=== PATIENT | female | born 1990 | race Caucasian/White ===

== ENCOUNTER 2021-01-27 08:50 | Inpatient (IN) ==
[2021-01-27] MEDS ORDERED: OXYTOCIN 30 UNITS/500 ML BAG IV PRN ×3 (09:12→19:21)
--- NOTE | 2021-01-27 09:20 | History & Physical Report ---
Date of Service January 27, 2021 Assessment & Plan (1) Encounter for induction of labor: Plan: Admit, labs, iv, pitocin, plan arom. fhts categ 1. Admission and Anticipated Discharge Date Admission Date: January 27, 2021 History of Present Illness Chief Complaint: postdates induction Primary Care Provider: Dimitrios Cabrera, TIMOTHY, GUI 30yo at 40+wks marya presents to L&D with cc of planned induction for postdates. She had some ctx yesterday but stopped. No rom, no vb. +FM. PNC c/b 1. postdates 2. hypothyroid PNL Rh pos, RI, GBS neg OBH: x 2 GYNH: nl paps, no stds Allergies Allergy/AdvReac Type Severity Reaction Status Date / Time No Known Allergies Allergy Verified 01/26/21 14:55 Home Medications Medication Instructions Recorded Confirmed Type prenat.vits,zohreh,[id number] 1 tab PO DAILY 12/08/19 01/26/21 History levothyroxine 137 mcg tablet 137 mcg PO DAILY #90 tab 01/06/21 01/26/21 Rx ferrous sulfate 325 mg (65 mg 325 mg PO DAILY 01/27/21 01/27/21 History iron) tablet (Iron (ferrous sulfate)) Patient History Medical History (Updated 01/27/21 @ 09:32 by Francine Hall MD, FACOG) Hyperthyroidism Hypothyroidism Varicella vaccination Surgical History [facility] teeth extracted Family History (Updated 05/24/20 @ 11:13 by Cee Sin) Mother Hypothyroidism Family/Other Spina bifida Denies family history of Ovarian cancer Prostate cancer Myocardial infarction Breast cancer Colorectal cancer Social History (Updated 05/24/20 @ 11:14 by Cee Sin) Smoking Status: Never smoker Second Hand Exposure: No; Hx Alcohol Use: No Hx Substance Use: No Preferred Language: Polish Communication Ability: Effective Visual Impairment: No Limitations Hearing Ability: Normal Neon Sign Servicer Required: No Beliefs That Will Affect Care: None marital status: marital status details: Ramsey Beverly (32) [phone] Current Living Situation: Family Current Living Situation Comment: lives with spouse, 2 children current occupation: homemaker Feels Safe at Home: Yes Safety Concerns: Feels Safe At This Time Childhood Exposure to Second-Hand Smoke: No Dental Care, Regularly: Yes Physical Activity Frequency: 1-2 Times per Week Seatbelt Use: always Sunscreen Use: Yes Review of Systems as per Subjective / HPI Physical Exam Constitutional: WD/WN, vitals as above Respiratory: normal respiratory effort, lungs clear to auscultation Cardiovascular: Rate/Rhythm: regular rate and regular rhythm Gastrointestinal (Abdomen): soft gravid nt EFW 7-8# Musculoskeletal: no edema Neurologic: grossly normal Psychiatric: A+Ox3, euthymic affect Genitourinary: Manual OB Exam: + cervical dilation (2-3cm), + cervical effacement 70% and + station -2 OB Exam Monitor Tracing: + external FHT monitor used, + external uterine monitor used (occas), + category I and + normal FHT variability Results & Data ([facility]) Vital Signs (Past 12 Hours) Vital Signs Pulse BP 01/27/21 09:05 113 H 105/59 L Coding Level of Care Code None Diagnoses Encounter for induction of labor Z34.90
[2021-01-27] MEDS: LACTATED RINGER'S 1,000 ML IV PRN ×2 (09:51→15:41)
[2021-01-27 10:06] LABS: Hematocrit (blood only) 35.9 % (37-47); Hemoglobin 12.3 g/dL (12.0-16.0); Mean Corpuscular Hemoglobin 31.6 pg (25-34); Mean Corpuscular Hgb Conc 34.3 g/dL (32-36); Mean Corpuscular Volume 92.3 fL (80-100); Mean Platelet Volume 10.3 fL (7.4-10.4); Platelet Count 273 K/uL (130-400); RDW Coefficient of Variation 13.2 % (11.5-14.5); RDW Standard Deviation 44.7 fL (36.4-46.3); Red Blood Count 3.89 M/uL (4.2-5.4); White Blood Count 8.73 K/uL (4.8-10.8)
[2021-01-27] MEDS ORDERED: SODIUM CHLORIDE 0.9% INJ 10 ML VIAL ONE (10:16)
[2021-01-27] MEDS ORDERED: ePHEDrine sulfate 50 MG/ML AMP ONE (10:16)
[2021-01-27] MEDS ORDERED: fentaNYL citrate 100 MCG/2 ML VIAL ONE (10:17)
[2021-01-27] MEDS ORDERED: fentaNYL 2MCG/ML ROPIVACAINE 1.25MG/ML 100 ML BAG EPI ONE (10:17)
[2021-01-27] MEDS ORDERED: BUPIVACAINE 0.25% 30 ML VIAL ONE (10:17)
[2021-01-27] MEDS ORDERED: NALOXONE HCL 1 MG in SODIUM CHLORIDE 0.9% 1000ML 1,000 ML IV PRN (15:44)
[2021-01-27] MEDS ORDERED: ePHEDrine sulfate 50 MG/ML AMP IV PRN (15:44)
[2021-01-27] MEDS ORDERED: NALOXONE HCL 0.4 MG/1 ML VIAL/CARP IV PRN (15:44)
[2021-01-27] MEDS ORDERED: diphenhydrAMINE 50 MG/ML VIAL IV PRN (15:44)
[2021-01-27] MEDS ORDERED: ONDANSETRON INJ 2 MG/ML 2 ML VIAL IV PRN (15:44)
[2021-01-27] MEDS ORDERED: fentaNYL 2MCG/ML ROPIVACAINE 1.25MG/ML 100 ML BAG EPI PRN (15:44)
[2021-01-27] MEDS ORDERED: NALBUPHINE HCL INJ 10 MG/ML AMP IV PRN (15:44)
--- NOTE | 2021-01-27 15:47 | Anesthesiology Consultation ---
Date of Service January 27, 2021 Assessment & Plan ASA ASA2 Proposed Anesthesia Anesthesia Type: Labor Epidural Risk / Benefits Reviewed With: PT / POA / Parent / Guardian, Accepts Plan and Informed Consent Obtained History Height/Weight Height: 5 ft 3 in Weight: 70.307 kg Allergies Allergy/AdvReac Type Severity Reaction Status Date / Time No Known Allergies Allergy Verified 01/26/21 14:55 Medications Home Medications Medication Instructions Recorded Confirmed Last Taken prenat.vits,zohreh,zjg-goqu-rorbn 1 tab PO DAILY 12/08/19 01/27/21 01/27/21 levothyroxine 137 mcg tablet 137 mcg PO DAILY #90 tab 01/06/21 01/27/21 01/27/21 ferrous sulfate 325 mg (65 mg 325 mg PO DAILY 01/27/21 01/27/21 01/26/21 iron) tablet (Iron (ferrous sulfate)) Active Medications Generic Name Dose Route Start Last Admin Trade Name Freq PRN Reason Stop Dose Admin Ephedrine Sulfate 10 mg 01/27/21 15:44 01/27/21 16:28 Ephedrine Sulfate 50 Mg/Ml Amp IV 01/28/21 15:43 10 mg Q5M PRN Administration Hypotension Oxytocin 30 units in 500 mls @ 3 mls/hr 01/27/21 09:12 01/27/21 11:18 Pitocin IV 01/29/21 09:11 0.18 units/hr .Q24H PRN 3 mls/hr Labor Induction/Augmentation Titration Protocol 0.18 UNITS/HR Lactated Ringer's 1,000 mls @ 125 mls/hr 01/27/21 09:12 01/27/21 16:21 Lr IV 01/29/21 09:11 125 mls/hr .Q8H PRN Titration L&D Protocol Protocol Ropivacaine 100 ml 01/27/21 15:44 01/27/21 16:17 Fentanyl 2mcg/Ml Ropivacaine 1.25mg/Ml 100 Ml Bag EPI 01/28/21 15:43 100 ml PRN PRN Administration Pain R/T Labor Protocol Past Medical History Medical History (Updated 01/27/21 @ 09:32 by Francine Hall MD, FACOG) Hyperthyroidism Hypothyroidism Varicella vaccination Exercise / Class Metabolic Activity II 4-5 Yardwork/Stairs/Walk up hill Past Family History Family History (Updated 05/24/20 @ 11:13 by Cee Sin) Mother Hypothyroidism Family/Other Spina bifida Denies family history of Ovarian cancer Prostate cancer Myocardial infarction Breast cancer Colorectal cancer Past Surgical History Surgical History [place] teeth extracted Past Anesthesia History No Hx of Anesthesia Complications and No Family Hx of Anesthesia Complications History of PONV No Hx of PONV and No Hx of Motion Sickness Social History Smoking Status: Never smoker Hx Alcohol Use: No Hx Substance Use: No Review of Systems denies fever/cough/ colds/ chest pain/ SOB/ DAYANA denies DAYANA Physical Exam Vital Signs Last Vital Signs Temp 36.9 C 01/27/21 15:00 Pulse 113 H 01/27/21 09:05 Resp 18 01/27/21 15:00 BP 105/59 L 01/27/21 09:05 ENMT Mouth: no TMJ abnormality and no dentition abnormality Thyromental Distance: > or= 3.5 Finger Breadths Mallampati Class: II Neck neck extension not limited Respiratory normal respiratory effort; no respiratory distress Auscultation: lungs clear to auscultation bilaterally Cardiovascular Rate/Rhythm: regular rate and regular rhythm Neurologic moves all extremities Psychiatric Orientation: alert and oriented x 3 Testing Laboratory Results 01/27/21 09:53
[2021-01-27] MEDS ORDERED: HYDROCORTISONE ACETATE 25 MG SUPP PR PRN (19:21)
[2021-01-27] MEDS ORDERED: ACETAMINOPHEN 325 MG TAB PO PRN (19:21)
[2021-01-27] MEDS ORDERED: BENZOCAINE 20% AER SPR 82.5 GM CAN EXT PRN (19:21)
[2021-01-27] MEDS ORDERED: SUPERCREAM 0.870% 15 GM JAR EXT PRN (19:21)
[2021-01-27] MEDS ORDERED: DIPHTHERIA/TETANUS/PERTUSSIS 0.5 ML SYR/VIAL IM ONE (19:21)
[2021-01-27] MEDS ORDERED: oxyCODONE/ACETAMINOPHEN 5mg/325mg TAB PO PRN (19:21)
[2021-01-27] MEDS: IBUPROFEN 600 MG TAB PO PRN (19:44)
[2021-01-27] MEDS ORDERED: OXYTOCIN 20 UNITS in LACTATED RINGER'S 1,000 ML IV SCH (19:45)
--- NOTE | 2021-01-27 19:55 | Anesthesiology Progress Note ---
Date of Service January 27, 2021 Anesthesia Post Procedure Vital Signs Vital Signs: Temp Pulse Resp BP Pulse Ox 01/27/21 19:46 100 H 103/55 L 01/27/21 19:31 107 H 98/56 L 01/27/21 19:30 107 H 18 98/56 L 01/27/21 19:17 103 H 101/59 L 01/27/21 19:15 37.1 C 107 H 18 98/56 L 01/27/21 19:14 112 H 99 01/27/21 19:09 106 H 98 01/27/21 19:04 128 H 99 01/27/21 19:00 18 01/27/21 18:59 125 H 99 01/27/21 18:56 124 H 74 L 01/27/21 18:54 128 H 99 01/27/21 18:52 127 H 114/59 L 01/27/21 18:49 122 H 82 L 01/27/21 18:44 110 H 97 01/27/21 18:42 119 H 92 01/27/21 18:39 107 H 100 01/27/21 18:36 96 H 104/56 L 01/27/21 18:34 112 H 99 01/27/21 18:30 18 01/27/21 18:29 105 H 98 01/27/21 18:25 97 H 92 01/27/21 18:24 95 H 98 01/27/21 18:21 77 80/42 L 01/27/21 18:19 87 99 01/27/21 18:14 108 H 98 01/27/21 18:09 109 H 98 01/27/21 18:05 107 H 88/52 L 01/27/21 18:04 127 H 99 01/27/21 18:00 18 01/27/21 17:59 109 H 97 01/27/21 17:54 120 H 99 01/27/21 17:50 118 H 110/57 L 01/27/21 17:49 119 H 99 01/27/21 17:45 135 H 87 L 01/27/21 17:44 138 H 99 01/27/21 17:39 123 H 94 01/27/21 17:35 114 H 112/58 L 01/27/21 17:34 120 H 100 01/27/21 17:29 112 H 100 01/27/21 17:24 119 H 100 01/27/21 17:20 112 H 100/58 L 01/27/21 17:19 112 H 100 01/27/21 17:14 111 H 100 01/27/21 17:09 114 H 99 01/27/21 17:06 118 H 101/58 L 01/27/21 17:04 110 H 99 01/27/21 17:00 18 01/27/21 16:59 110 H 100 01/27/21 16:54 109 H 100 01/27/21 16:49 104 H 104/66 100 01/27/21 16:44 104 H 100 01/27/21 16:39 104 H 100 01/27/21 16:35 107 H 108/75 01/27/21 16:34 104 H 100 01/27/21 16:32 90 113/65 01/27/21 16:30 82 18 98/59 L 01/27/21 16:29 75 100 01/27/21 16:28 61 18 74/40 L 01/27/21 16:27 65 80/47 L 01/27/21 16:26 68 18 75/44 L 01/27/21 16:24 78 18 100 01/27/21 16:22 18 01/27/21 16:20 18 01/27/21 16:19 97 H 105/64 100 01/27/21 16:18 18 01/27/21 16:17 106 H 105/61 01/27/21 16:16 18 01/27/21 16:15 97 H 99/58 L 01/27/21 16:14 100 H 18 100 01/27/21 16:13 95 H 94/60 L 01/27/21 16:12 36.9 C 18 01/27/21 16:11 92 H 101/72 01/27/21 16:09 107 H 101/58 L 100 01/27/21 16:07 97 H 102/58 L 01/27/21 16:04 97 H 100 01/27/21 16:00 108 H 107/61 01/27/21 15:59 108 H 100 01/27/21 15:00 36.9 C 18 01/27/21 12:30 18 01/27/21 12:00 18 01/27/21 11:30 18 01/27/21 09:05 36.8 C 113 H 18 105/59 L 01/27/21 09:00 36.6 C 18 Pain Intensity Lower Abdomen: Pain Intensity: 3 Transfer of Care Handoff Completed per policy Notes Mental Status: alert / awake / arousable and participated in evaluation Patient Amnestic to Procedure: Yes Nausea / Vomiting: adequately controlled Pain: adequately controlled Airway Patency, RR, SpO2: stable & adequate BP & HR: stable & adequate Hydration State: stable & adequate Anesthetic Complications: no major complications apparent and Pt Satisfied with anesthetic care
[2021-01-27] MEDS: DOCUSATE SODIUM 100 MG CAP PO SCH (21:51)
[2021-01-28] MEDS: IBUPROFEN 600 MG TAB PO PRN ×5 (00:44→17:35)
[2021-01-28] MEDS ORDERED: LEVOTHYROXINE SODIUM 137 MCG TABLET PO SCH (06:30)
--- NOTE | 2021-01-28 07:09 | Obstetrical Progress Note ---
Date of Service January 28, 2021 Assessment & Plan (1) care and examination: stable, doing well. desires d/c home. . rh pos, ri. instructions reviewed, f/u 6 wks pp Day #:: 1 Subjective Ambulation: ambulating normally Voiding: no voiding problems Diet Tolerance:: regular diet Lochia:: Small Feeding Type:: breast feeding denies complaints or pain issues Constitutional: + as per Subjective / HPI Physical Exam Constitutional WD/WN, vitals as above Respiratory normal respiratory effort, lungs clear to auscultation Cardiovascular Rate/Rhythm: regular rate and regular rhythm Gastrointestinal (Abdomen) Inspection/Auscultation: abdomen normal to inspection Percussion/Palpation: abdomen soft Fundus firm 1-2cm down Musculoskeletal nt calves no edema Neurologic grossly normal Psychiatric A+Ox3, euthymic affect Results & Data ([facility]) Vital Signs (Past 12 Hours) Vital Signs Temp Pulse Pulse Resp BP BP Pulse Ox 01/28/21 03:15 98.4 F 70 16 86/42 L 97 01/27/21 23:10 99.1 F 75 16 95/55 L 97 01/27/21 22:08 97.7 F 87 16 97/61 L 97 01/27/21 21:15 83 20 99/55 L 01/27/21 21:11 83 99/55 L 01/27/21 20:45 93 H 18 102/52 L 01/27/21 20:16 93 H 102/52 L 01/27/21 20:15 88 18 98/57 L 01/27/21 20:01 88 98/57 L 01/27/21 20:00 88 20 98/57 L 01/27/21 19:46 100 H 103/55 L 01/27/21 19:45 88 18 98/57 L 01/27/21 19:31 107 H 98/56 L 01/27/21 19:30 107 H 18 98/56 L 01/27/21 19:17 103 H 101/59 L 01/27/21 19:15 98.8 F 107 H 18 98/56 L 01/27/21 19:14 112 H 99 01/27/21 19:09 106 H 98
[2021-01-28] MEDS ORDERED: PRENATAL VITAMIN 1 TAB PO SCH (08:00)
[2021-01-28] MEDS: DOCUSATE SODIUM 100 MG CAP PO SCH (08:07)
--- NOTE | 2021-01-31 08:54 | Delivery Summary ---
Vaginal Delivery Summary Date of Service January 27, 2021 Vaginal Delivery Summary and 2nd Degree LAC Late entry. The patient dilated to complete and pushed to deliver a viable infant via over 2nd degree perineal laceration. Cephalic on my arrival and shoulders and body delivered with ease. was vigorous and crying at . Cord clamped at 30 seconds of life and infant to maternal abdomen where the cord was then doubly clamped and cut. Placenta delivered spontaneously and intact, three-vessel cord. Hemostasis achieved with dilute pitocin and uterine massage. Cervix and sulci intact. Laceration reapproximated with 3-0 vicry in usual fashion. EBL 300 cc. Mother and baby stable recovery. [facility] Vaginal Delivery Charge Delivery Type Details: and 2nd Degree LAC
--- NOTE | 2021-02-14 15:05 | Coding Query ---
CODING QUERY To promote full compliance with coding requirements relating to patient care, provider participation is requested in all cases of technology advisor uncertainty. Please assist us with the question(s) below: Coding Question(s): There is a positive COVID-19 result on 01/27/21 but there is no documentation in the record. Please specify below, regarding COVID-19. (x ) COVID-19 Infection with Positive COVID-19 Lab Result on admission ( ) NO COVID-19 Infection, despite the positive result the patient was Non- Infectious and did not have COVID-19 during the admission ( ) Other: Please Specify Physician's Response(s): Thank you Silva Sharif Principal Diagnosis: "that condition established after study, to be chiefly responsible for occasioning the admission of the patient to the hospital for care." Co-Existing Principal Diagnosis: "when two or more diagnoses equally meet the criteria for principal diagnosis as determined by the circumstances of admission, diagnostic work up, and/or therapy provided, and the Alphabetic Index, Tabular List, or another coding guideline does not provide sequencing direction, any one of the diagnoses may be sequenced first." "When the physician has documented what appears to be a current diagnosis in the body of the record, but has not included the diagnosis in the final diagnostic statement, the physician should be asked whether the diagnosis should be added." ([facility]oding [facility] 2 QTR90. p3-4) LILLIAM
== END 2021-01-28 20:25 | disposition home or self-care (01) | DRG 805 ==
LOC: 4S1 08:51 → 4W 10:20 → 3N 21:39